=== PATIENT | male | born 1945 | race American Indian/Alaskan Native ===

== ENCOUNTER 2018-12-10 05:59 | Day surgery (SDC) | payer BC, MEDICARE ==
[2018-12-10] MEDS ORDERED: ASPIRIN EC 325 MG TAB PO NR (06:18)
[2018-12-10 06:51] LABS: Basophils # (Auto) 0.1 K/mm3 (0.0-0.1); Basophils % (Auto) 0.9 % (0.0-1.8); Eosinophils # (Auto) 0.2 K/mm3 (0.0-0.4); Eosinophils % (Auto) 3.3 % (0.0-4.3); Hematocrit 41.5 % (35.5-45.6); Hemoglobin 14.2 gm/dl (11.8-15.2); Lymphocytes # (Auto) 2.7 K/mm3 (1.2-5.4); Lymphocytes % (Auto) 45.6 % (13.4-35.0); Mean Corpuscular HGB Conc 34 % (32-34); Mean Corpuscular Volume 83 fl (84-94); Monocytes # (Auto) 0.5 K/mm3 (0.0-0.8); Monocytes % (Auto) 9.3 % (0.0-7.3); Platelet Count 196 K/mm3 (140-440); Red Blood Count 5.04 M/mm3 (3.65-5.03); Red Cell Distribution Width 13.8 % (13.2-15.2)
[2018-12-10] MEDS ORDERED: SODIUM CHLORIDE 0.9% 500 ML 500 ML IV SCH (07:00)
[2018-12-10 07:02] LABS: INR 0.98 (0.87-1.13)
[2018-12-10 07:13] LABS: BUN/Creatinine Ratio 19; Blood Urea Nitrogen 19 mg/dL (9-20); Calcium 8.8 mg/dL (8.4-10.2); Hemolysis Index 8
[2018-12-10] MEDS: fentaNYL 100 MCG/2 ML INJ ONE ×2 (09:21→09:32)
[2018-12-10] MEDS: LIDOCAINE (2%) 20 MG/1 ML VIAL 20 ML MDV INFILTRATI ONE ×2 (09:21→09:33)
[2018-12-10] MEDS: HEPARIN 10,000 UNITS/10 ML VIAL ONE ×2 (09:21→09:34)
[2018-12-10] MEDS: MIDAZOLAM 2 MG/2 ML INJ ONE ×2 (09:21→09:32)
[2018-12-10] MEDS: VERAPAMIL 5 MG/2 ML INJ ONE ×2 (09:22→09:34)
[2018-12-10] MEDS: HEPARIN/NS 5000 UNIT/500ML 1,000 ML IR ONE ×2 (09:22→09:33)
[2018-12-10] MEDS: NITROGLYCERIN SYRINGE 3 ML ONE ×2 (09:23→09:34)
--- NOTE | 2018-12-10 11:15 | Cardiac Catherization Report ---
HEART CATHETERIZATION REFERRING PHYSICIAN: Dr. Ackerman. INDICATION FOR PROCEDURE: The patient is a very pleasant 73-year-old -[place] Citizen male with multiple risk factors, presents here as referred for cardiac catheterization due to recurrent chest pain despite negative stress test. Risks, benefits and alternatives discussed at length prior to obtaining informed consent. PROCEDURE IN DETAIL: The patient was brought to the catheterization lab in a postabsorptive state, prepped and draped in sterile fashion. Olayinka's test in right hand was normal. A 2 mL of 2% lidocaine used to anesthetize the right wrist. A standard 6-Macanese hydrophilic sheath used to cannulate the right radial artery via modified Seldinger technique. All exchanges performed over exchange a J-tip guidewire. A JL3.5 of catheter used to engage the left main. No dampening or ventricularization. Cineangiography performed in all projections. JR4 catheter used to cross the aortic valve under fluoroscopic guidance. Left ventriculography performed in [address] projections via hand injections, catheter flushed. Manual pullback performed with continuous pressure monitoring. Catheter used to engage the right coronary. No dampening or rate ventricularization. Cineangiography performed in all projections. Next, catheter removed from the body of wire, sheath removed. Manual pressure used to achieve hemostasis. I directly supervised the administration of moderate sedation from 9:30 a.m. to 10:00 a.m. with fentanyl and Versed. DATA: Aortic pressure is 120/80, LV pressure is 120, LVP of 12 mmHg. Left ventriculography reveals normal systolic performance with estimated ejection fraction of 55-60%. No evidence of aortic stenosis. CORONARY ANATOMY: This is a right dominant system. Right coronary is a moderate sized vessel, courses AV groove, distally bifurcates in the posterior and posterolateral branches. No discrete stenosis noted. Left main without significant disease, bifurcates in the left anterior descending and left circumflex. LAD is a moderate sized vessel, courses anterior intergroove, wraps around the apex, no significant disease noted in the LAD or diagonal system. Scattered luminal irregularities. Left circumflex, moderate sized vessel, courses AV groove, no significant disease noted. The patient tolerated the procedure well, no complications. Standard radial care. CONCLUSIONS: 1. No angiographic evidence of significant epicardial coronary disease in this right dominant system. 2. Normal left ventricular systolic performance, estimated ejection fraction of 55-60%. 3. No evidence of aortic stenosis. 4. Normal LVEDP. Stable cardiac status. The patient tolerated the procedure well. Results of the procedure explained in length to the patient and family. All questions and concerns were addressed. The patient will follow up with Dr. Ackerman in the office. Aggressive primary and secondary prevention measures discussed. JOB# [id number] FELISA/MEGAN
--- NOTE | 2018-12-10 11:58 | Short Stay Summary ---
Short Stay Documentation Date of service: 12/10/18 - History H&P: obtained from office - Allergies and Medications Current Medications: Allergies No Known Allergies Allergy (Unverified 01/27/15 15:47) Home Medications Medication Instructions Recorded Confirmed Last Taken Type Cholecalciferol (Vitamin D3) 5,000 unit PO DAILY 01/27/15 12/10/18 12/09/18 History [Vitamin D] Gabapentin [Neurontin] 400 mg PO DAILY 01/27/15 12/10/18 1 Week Ago History ~12/03/18 Garlic [Odor Free Garlic] 100 mg PO DAILY 01/27/15 12/10/18 Unknown History Ibuprofen [Motrin] 800 mg PO Q8HR PRN 01/27/15 12/10/18 Unknown History Multivitamin [Multiple Vitamins] 1 each PO DAILY 12/10/18 12/10/18 12/09/18 History Pantoprazole [Protonix] 40 mg PO QDAY 12/10/18 12/10/18 12/09/18 History Telmisartan/Hydrochlorothiazid 1 tab PO DAILY 12/10/18 12/10/18 12/09/18 History [Telmisartan-Hctz 80-12.5 mg Tb] amLODIPine [Norvasc] 10 mg PO DAILY 12/10/18 12/10/18 12/09/18 History Active Medications Sodium Chloride (Nacl 0.9% 500 Ml) 500 mls @ 50 mls/hr IV DIRECT MEHUL Stop: 12/10/18 16:59 Last Admin: 12/10/18 07:31 Dose: 50 mls/hr Documented by: - Brief post op/procedure progress note Date of procedure: 12/10/18 Pre-op diagnosis: recurrent chest pain Post-op diagnosis: same Procedure: [facility] - see dictated cath report Anesthesia: local Estimated blood loss: none Condition: stable - Disposition Condition at discharge: Good Disposition: [id number] TO HOME OR SELFCARE - Discharge Diagnoses (1) Normal coronary arteries Status: Chronic Short Stay Discharge Plan Activity: advance as tolerated Wound: open to air, keep clean and dry, per your surgeon's advice Follow up with: HOME FARRELL MD [Primary Care Provider] - 7 Days
[2018-12-10 13:05] VITALS: BP 143/78
== END 2018-12-10 13:00 | disposition home or self-care (01) ==
LOC: CATHLABREC 05:59
PROVIDERS: ATTEND Internal Medicine
DX: R07.9 Chest pain, unspecified (principal); I11.9 Hypertensive heart disease without heart failure; I77.810 Thoracic aortic ectasia; R73.03 Prediabetes; K21.9 Gastro-esophageal reflux disease without esophagitis; N40.0 Benign prostatic hyperplasia without lower urinary tract symptoms; M19.90 Unspecified osteoarthritis, unspecified site; M10.9 Gout, unspecified; Z72.89 Other problems related to lifestyle; Z83.3 Family history of diabetes mellitus; Z82.49 Family history of ischemic heart disease and other diseases of the circulatory system; Z79.899 Other long term (current) drug therapy; Z98.890 Other specified postprocedural states
CPT/HCPCS: 36415; 80048; 85025; 85610; 85730; 93005; 93010; 93458; 99156; 99157; C1894; J1644; J2250; J3010; J7040; Q9967

== ENCOUNTER 2019-04-21 10:21 | Outpatient (CLI) | payer BC, MEDICARE ==
[2019-04-24 14:33] LABS: Vitamin D, 25-OH, D2 <4 ng/mL
[2019-04-26 14:44] LABS: ANA Screen, IFA Negative (Negative)
== END 2019-04-21 10:22 | disposition home or self-care (01) ==
LOC: LAB 10:21
PROVIDERS: ATTEND Specialist
DX: E11.42 Type 2 diabetes mellitus with diabetic polyneuropathy (principal); G56.23 Lesion of ulnar nerve, bilateral upper limbs
CPT/HCPCS: 36415; 82306; 82607; 83921; 84443; 85652; 86038; 86334; 86431; 86592